=== PATIENT | male | born 1980 | race Caucasian/White ===

== ENCOUNTER 2016-02-27 13:32 | Emergency (ER) | payer OTHER ==
[~2016-02-27] VITALS: Ht 177.8 cm; Wt 106.6 kg
[~2016-02-27 13:32] MED LIST: FLEXERIL10 MG PO; FLUOXETINE HCL10 MG PO; KEFLEX500 MG PO; PREDNISONE10 MG PO; ULTRAM50 MG PO; VYVANSE50 MG PO
[2016-02-27 14:57] LABS: AMPHETAMINE NEGATIVE (500 ng/mL); BARBITURATES NEGATIVE (200 ng/mL); BENZODIAZEPINES PRESUMPTIVE POSITIVE (150 ng/mL); COCAINE PRESUMPTIVE POSITIVE (150 ng/mL); METHADONE NEGATIVE (200 ng/mL); METHAMPHETAMINE NEGATIVE (500 ng/mL); OPIATES (MORPHINE) NEGATIVE (100 ng/mL); PHENCYCLIDINE NEGATIVE (25 ng/mL); THC CANNABINOIDS PRESUMPTIVE POSITIVE (50 ng/mL); TRICYCLIC ANTIDEPRESSANTS NEGATIVE (300 ng/mL)
[2016-02-27 14:58] LABS: ADD MEDTOX COMMENT Y; INTERNAL CONTROLS VALID? YES; OXYCODONE PRESUMPTIVE POSITIVE (100 ng/mL); PROPOXYPHENE NEGATIVE (300 ng/mL)
[2016-02-27 15:06] LABS: MCH 28.9 PG (29.0-34.0); MCHC 35.9 G/DL (30.0-36.0); MCV 80.7 FL (86-99); MEAN PLAT.VOLUME 10.2 uM^3 (9.0-12.4); PLATELET COUNT 214 K/uL (156-360); RBC DIS.WIDTH-CV 13.1 % (11.8-14.6); RBC DIS.WIDTH-SD 37.4 % (39-53); RED BLOOD COUNT 5.08 M/uL (4.00-5.50); WHITE BLOOD COUNT 7.8 K/uL (4.1-10.2)
[2016-02-27 15:17] LABS: CHLORIDE 106 mEq/L (99-109)
[2016-02-27 15:18] LABS: SODIUM 141 mEq/L (136-147)
[2016-02-27 15:20] LABS: GLUCOSE 96 mg/dL (70-99)
[2016-02-27 15:21] LABS: ANION GAP 13 MEQ/L (2-14)
[2016-02-27 15:22] LABS: TOTAL BILIRUBIN 0.5 mg/dL (0.0-1.0)
[2016-02-27 15:23] LABS: ALKALINE PHOSPHATASE 116 IU/L (3-129); GFR ESTIMATE (CALCULATED) > 59 mL/min/
[2016-02-27 15:25] LABS: UREA NITROGEN (BUN) 13 mg/dL (9-23)
[2016-02-27 15:28] LABS: TROP-I INTERPRETATION NEGATIVE; TROPONIN-I < 0.01 ng/mL (0.0-0.30)
[2016-02-27 15:36] LABS: BENZODIAZEPINES QUANT VALUE 0 NG/ML
[2016-02-27 15:38] LABS: BENZODIAZEPINES, URINE SCREEN Negative (200 ng/mL)
[2016-02-27 16:35] VITALS: BP 117/69
== END 2016-02-27 16:36 | disposition home or self-care (01) ==
LOC: EME 13:32
PROVIDERS: Nurse Practitioner Family
DX: R07.89 Other chest pain (principal); F11.10 Opioid abuse, uncomplicated; F19.10 Other psychoactive substance abuse, uncomplicated; F17.210 Nicotine dependence, cigarettes, uncomplicated; J45.909 Unspecified asthma, uncomplicated
CPT/HCPCS: 71020; 80053; 84484; 84999; 85027; 93005; 99281; 99284